=== PATIENT | female | born 1935 | race Caucasian/White ===

== ENCOUNTER 2020-06-18 05:58 | Day surgery (SDC) | payer MEDICARE ==
[2020-06-17 14:11] LABS: BASOPHILS % (AUTO) 0.5 % (0-1); EOSINOPHILS # (AUTO) 0.2 X10'3 (0-0.9); EOSINOPHILS % (AUTO) 2.7 % (0-6); HEMATOCRIT 35.7 % (35.0-45.0); HEMOGLOBIN 11.6 g/dl (12.0-16.0); LYMPHOCYTES # (AUTO) 1.6 X10'3 (1.1-4.8); LYMPHOCYTES % (AUTO) 17.5 % (21-51); MEAN CORPUSCULAR HEMOGLOBIN 29.4 PG (27.0-31.0); MEAN CORPUSCULAR HGB CONC 32.5 g/dL (33.0-36.5); MEAN CORPUSCULAR VOLUME 90.4 FL (78-98); MEAN PLATELET VOLUME 7.6 FL (7.4-10.4); MONOCYTES # (AUTO) 0.6 X10'3 (0-0.9); MONOCYTES % (AUTO) 6.9 % (2-12); NEUTROPHILS # (AUTO) 6.5 X10'3 (1.8-7.7); NEUTROPHILS % (AUTO) 72.4 % (42-75); PLATELET COUNT 295 X10'3 (140-440); RED BLOOD COUNT 3.95 X10'6 (4.20-5.60); RED CELL DISTRIBUTION WIDTH 15.2 % (11.5-14.5)
[2020-06-17 14:21] LABS: ALBUMIN 3.4 G/DL (3.4-5.0); ANION GAP 10 (8-16); BLOOD UREA NITROGEN 20 MG/DL (7-18); BUN/CREATININE RATIO 18.5 (6.6-38.0); CALCIUM 9.4 MG/DL (8.5-10.1); CHLORIDE 105 MMOL/L (99-107); CREATININE 1.08 MG/DL (0.40-0.90); GLUCOSE 134 MG/DL (70-104); POTASSIUM 4.1 MMOL/L (3.5-5.1); SODIUM 141 MMOL/L (135-145); TOTAL CARBON DIOXIDE 25.6 MMOL/L (24-32); eGFR 48 ML/MIN
[2020-06-17 14:24] LABS: PARTIAL THROMBOPLASTIN TIME 25 SECONDS (22-32)
[2020-06-18] VITALS (11 sets, daily range): BP systolic 140–159; BP diastolic 52–63
[~2020-06-18] VITALS: Ht 147.3 cm; Wt 55.5 kg
[2020-06-18] MEDS ORDERED: normal saline 1,000 ML IV SCH (06:15)
[2020-06-18] MEDS ORDERED: LORazepam 0.5 MG tablet PO PRN (06:15)
[2020-06-18] MEDS ORDERED: LIDOcaine/PRILOcaine 5gm cream TP ONE (06:15)
[2020-06-18] MEDS ORDERED: diphenhydrAMINE 25mg capsule PO PRN (06:15)
[2020-06-18] MEDS ORDERED: METF500T PO (06:29)
[2020-06-18] MEDS ORDERED: ATOR80TA PO (06:29)
[2020-06-18] MEDS ORDERED: CARV3.12 PO (06:29)
[2020-06-18] MEDS ORDERED: MULT-1085 PO (06:29)
[2020-06-18] MEDS ORDERED: CLOP75TA33 PO (06:29)
[2020-06-18] MEDS ORDERED: LISI-600 PO (06:29)
[2020-06-18] MEDS ORDERED: AMLO5TAB PO (06:29)
[2020-06-18] MEDS ORDERED: ASPI-611 PO (06:29)
[2020-06-18] MEDS ORDERED: DORZ10DR18 EACHEYE (06:29)
[2020-06-18] MEDS ORDERED: nitroGLYCERIN-Tridil 50MG/D5W 250 ML IV ONE (07:46)
[2020-06-18] MEDS ORDERED: heparin 1,000unit/ml 10ml vial 10 ML ONE (07:47)
[2020-06-18] MEDS ORDERED: iohexol 350 MG/ML 50ML vial IV ONE ×2 (07:47→08:40)
[2020-06-18] MEDS ORDERED: fentaNYL/PF 50MCG/1 ML 2ML syringe ONE (07:47)
[2020-06-18] MEDS ORDERED: LIDOcaine 1% (10mg/ml)w/preservative injection 20ml MDV ONE (07:47)
[2020-06-18] MEDS ORDERED: iohexol 350MG/ML 100ml bottle IV ONE ×2 (07:47→08:37)
[2020-06-18] MEDS ORDERED: midazolam 2 mg/2 ml injection ONE (07:47)
[2020-06-18] MEDS ORDERED: normal saline 1000ml 1,000 ML IV SCH (09:35)
--- NOTE | 2020-06-18 10:32 | NUR ---
pt voided 50ml, clear yellow.
--- NOTE | 2020-06-18 10:45 | NUR ---
total bed change done due to incontinence.
--- NOTE | 2020-06-18 11:00 | NUR ---
pt voided in bedpan, 100ml. clear yellow.
--- NOTE | 2020-06-18 11:25 | NUR ---
pt voided, clear yellow. 100ml
== END 2020-06-18 15:00 | disposition home or self-care (01) ==
LOC: SSTAY O 05:58
PROVIDERS: ATTEND Internal Medicine Cardiovascular Disease
DX: R94.39 Abnormal result of other cardiovascular function study (principal); I25.708 Atherosclerosis of coronary artery bypass graft(s), unspecified, with other forms of angina pectoris; I49.5 Sick sinus syndrome; I10 Essential (primary) hypertension; E78.5 Hyperlipidemia, unspecified; E11.39 Type 2 diabetes mellitus with other diabetic ophthalmic complication; H40.9 Unspecified glaucoma; M19.90 Unspecified osteoarthritis, unspecified site; Z88.5 Allergy status to narcotic agent; Z79.899 Other long term (current) drug therapy; Z95.1 Presence of aortocoronary bypass graft; Z79.01 Long term (current) use of anticoagulants; Z79.82 Long term (current) use of aspirin; Z95.0 Presence of cardiac pacemaker; Z79.84 Long term (current) use of oral hypoglycemic drugs; Z87.442 Personal history of urinary calculi; Z82.49 Family history of ischemic heart disease and other diseases of the circulatory system; Z80.6 Family history of leukemia; Z81.8 Family history of other mental and behavioral disorders
CPT/HCPCS: 36415; 76937; 80048; 82948; 85025; 85610; 85730; 93005; 93461; 93567; 99152; 99153; C1760; C1769; J1644; J2001; J2250; J3010; J7030; Q0163; Q9967; A4620; A6258; C1751; J3490

== ENCOUNTER 2020-06-23 14:42 | Outpatient (CLI) | payer MEDICARE ==
[~2020-06-23 14:42] MED LIST: AMLO5TAB PO; ASPI-611 PO; ATOR80TA PO; CARV3.12 PO; CLOP75TA33 PO; DORZ10DR18 EACHEYE; LISI-600 PO; METF500T PO; MULT-1085 PO
== END 2020-06-23 23:59 | disposition home or self-care (01) ==
LOC: VAS 14:42
PROVIDERS: ATTEND Family Medicine
DX: I65.23 Occlusion and stenosis of bilateral carotid arteries (principal); I63.81 Other cerebral infarction due to occlusion or stenosis of small artery; G93.89 Other specified disorders of brain
CPT/HCPCS: 70450; 93880